=== PATIENT | male | born 1960 | race Caucasian/White ===

== ENCOUNTER 2021-04-15 11:02 | Day surgery (SDC) | payer BC, OTHER, SELFPAY ==
[2021-04-15] VITALS (9 sets, daily range): BP systolic 111–172; BP diastolic 64–91; PULSE 61–78; RESP 14–20; TEMP 36.2–36.6; O2SAT 94–99
--- NOTE | ~2021-04-15 | CT_ITS ---
EXAMINATION: CT abdomen pelvis w con DATE: 04/15/2021 13:44 INDICATION: Left flank pain. Hematuria. TECHNIQUE: Computed tomography (CT) of the abdomen and pelvis was performed with 100 mL Omnipaque 350 intravenous contrast. Automated exposure control and iterative reconstruction technique were employe d. The dose-length product was 796.48 mGy-cm. COMPARISON: CT abdomen and pelvis 05/07/2018, 04/18/2018 FINDINGS: The visualized portions of the lung bases demonstrate mild atelectasis. No pleural effusion . The heart size is normal. No pericardial effusion. There is a moderate-sized sliding hiatal hernia. There is a 9 mm cyst in the liver. There is a chronic 2.2 cm mass in right hepatic lobe with interru pted peripheral puddling of contrast, consistent with a hemangioma. There is a chronic 13 mm mass in right hepatic lobe at the hilum that was hyperenhancing on the prior CT, likely a hemangioma. The gal lbladder is normal. Calcifications in the spleen are consistent with old granulomatous disease. The p ancreas and adrenal glands are normal. There are cysts in right kidney measuring up to 4.6 cm. There are 3 mm and 4 mm stones in right kidney. There is mild proximal right hydroureter. There is a 3 mm s tone in proximal right ureter. There is a delayed and decreased left-sided contrast nephrogram. There is mild left hydronephrosis and hydroureter. There is a 5 mm stone in proximal left ureter. The pros nguyen is mildly enlarged. There are scattered diverticula in the colon. There is focal wall thickening of sigmoid colon. The appendix is normal. There are no pathologically enlarged lymph nodes. There is no free intraperitoneal fluid. There are bilateral inguinal hernias containing fat. There is mild jonny mbar spondylosis. IMPRESSION: 1. 3 mm stone in proximal right ureter with mild right hydroureter. 2. 5 mm stone in proximal left ureter with mild left hydronephrosis and hydroureter. 3. Bilateral nonobstructing kidney stones. 4. Focal wall thickening of sigmoid colon, which may be chronic diverticulitis or less likely maligna ncy. Colonoscopy is recommended. 5. Moderate-sized sliding hiatal hernia. Reviewed, dictated and finalized at location B. T HEMMER IMPRESSION: 1. 3 mm stone in proximal right ureter with mild right hydroureter. 2. 5 mm stone in proximal left ureter with mild left hydronephrosis and hydrour eter. 3. Bilateral nonobstructing kidney stones. 4. Focal wall thickening of sigmoid colon, which may be chronic diverticulitis or less likely malignancy. Colonoscopy is recommended. 5. Moderate-sized sliding hiatal hernia.
--- NOTE | ~2021-04-15 | XR_ITS ---
EXAMINATION: XR retrograde pyelo w/stent BI DATE: 04/15/2021 16:07 INDICATION: Bilateral internal ureteral stent placement TECHNIQUE: Fluoroscopic images from a bilateral internal ureteral stent placement are submitted for griffin bernardo. 17 seconds of fluoroscopy time. 157 fluoroscopic images. FINDINGS: There are bilateral double-J internal ureteral stent projecting in expected position, with proximal C ope loop at the level of the renal pelvis and distal loop in the pelvis within the bladder lumen. IMPRESSION: 1. Bilateral internal ureteral stent placement. Please refer to real-time procedural findings for d etails. Reviewed, dictated and finalized at location A. [facility]ER IMPRESSION: 1. Bilateral internal ureteral stent placement. Please refer to real-time pro cedural findings for details.
--- NOTE | 2021-04-15 12:31 | ED.ABDPAIN ---
HPI - Abdominal Pain General Chief Complaint: Abdominal Pain Stated Complaint: left sided flank pain Time Seen by Provider: 04/15/21 12:29 Source: patient, family and RN notes reviewed Mode of arrival: ambulatory Limitations: no limitations History of Present Illness HPI narrative: Patient presents with left lower abdomen left flank pain started yesterday associated with nausea and intermittent vomiting, history of kidney stone. Patient denies any fever, chills, diarrhea or constipation. Related Data Home Medications Medication Instructions Recorded Confirmed aspirin [Baby Aspirin] 81 mg PO DAILY 04/15/21 04/15/21 azelastine 1 spray INTRANASAL BID 04/15/21 04/15/21 clopidogrel 75 mg PO DAILY 04/15/21 04/15/21 coenzyme Q10 [CoQ-10] 100 mg PO DAILY 04/15/21 04/15/21 cranberry extract [cranberry] 250 mg PO DAILY 04/15/21 04/15/21 finasteride 5 mg PO DAILY 04/15/21 04/15/21 metoprolol succinate 25 mg PO DAILY 04/15/21 04/15/21 montelukast 10 mg PO DAILY 04/15/21 04/15/21 idiimvmc-odo-ND-lycopen-lutein 1 tablet PO DAILY 04/15/21 04/15/21 [Centrum Silver Men] rosuvastatin 40 mg PO DAILY 04/15/21 04/15/21 sildenafil 100 mg PO PRN PRN 04/15/21 04/15/21 Allergies Allergy/AdvReac Type Severity Reaction Status Date / Time No Known Allergies Allergy Unverified 05/07/18 09:55 Review of Systems Review of Systems: CONSTITUTIONAL: Denies fever, chills, or sweats. EYES: Denies visual changes, redness, or discharge. ENT: Denies rhinorrhea, congestion, sore throat, or otalgia. CARDIOVASCULAR: Denies chest pain, palpitations, or edema. RESPIRATORY: Denies cough or dyspnea. GASTROINTESTINAL: Denies abdominal pain, nausea, vomiting, or diarrhea. GENITOURINARY: Denies dysuria or hematuria. SKIN: Denies rash or itching. MUSCULOSKELETAL: Denies back pain, joint pain, or myalgia. NEUROLOGIC: Denies headache, numbness, or weakness. PSYCHIATRIC: Denies anxiety or depression. [facility] Past Medical History Medical History CAD (coronary artery disease) Hyperlipidemia Hypertension JAQUELINE (obstructive sleep apnea) Surgical History Surgical History Hx of CABG Exam Narrative: General appearance: Well-developed, well-nourished Skin: Normal color Head: Normocephalic, nontraumatic Eyes: Clear conjunctiva ENT: Oropharynx normal, ears normal, nose normal Neck: Supple, nontender Chest and respiratory: Airway patent, no respiratory distress, no accessory muscle use Heart: Regular rate/rhythm Abdomen: Soft, mild tenderness left lower quadrant and left flank, no organomegaly, quiet bowel sounds Vascular: Normal peripheral pulses, normal capillary refill. Musculoskeletal: Normal range of motion, nontender back Neurologic: Alert and oriented ?3, [employer] is normal as tested, no gross motor deficit Course Course Emergency Course: Stable Consultations Consultation #1: Dr. Pisano who accepted patient admission to the OR for kidney stone removal Date: 04/15/21 Time: 15:56 Vital Signs Vital signs: Vital Signs Temperature 36.3 C L 04/15/21 11:12 Pulse Rate 72 04/15/21 11:12 Respiratory Rate 14 04/15/21 11:12 Blood Pressure 137/75 04/15/21 11:12 Pulse Oximetry 99 04/15/21 11:12 Temperature 36.6 C 04/15/21 15:20 Pulse Rate 64 04/15/21 15:20 Respiratory Rate 20 04/15/21 15:20 Blood Pressure 172/91 H 04/15/21 15:20 Pulse Oximetry 98 04/15/21 15:20 MDM - Abdominal Pain MDM Narrative Medical decision making narrative: Kidney stone is my concern. Differential Diagnosis Differential diagnosis: Likely abdominal pain, calculus o
[2021-04-15 12:40] LABS: Basophils Percent Auto 0.2 % (0.2-1.2); Eosinophils Percent Auto 0.1 % (0-4.4); Hematocrit 46.3 % (42.0-52.0); Hemoglobin 15.5 g/dL (14.0-18.0); Immature Granulocyte Absolute 0.05 K/mm3 (0.00-0.031); Immature Granulocyte Percent A 0.4 % (0-0.5); Lymphocytes Absolute Auto 1.84 K/mm3 (0.9-3.2); Lymphocytes Percent Auto 14.7 % (18.3-44.2); Mean Corpuscular HGB Conc 33.5 g/dl (32-36); Mean Corpuscular Hemoglobin 31.1 pg (26-34); Mean Platelet Volume 10.2 fl (7.4-10.4); Monocytes Percent Auto 8.3 % (2.6-8.5); Neutrophils Absolute Auto 9.5 K/mm3 (1.3-6.7); Neutrophils Percent Auto 76.3 % (45.5-73.1); Platelet Count Result 153 k/mm3 (150-375); Red Blood Count 4.98 M/mm3 (4.6-6.20); Red Cell Distribution Width 13.5 % (11.5-14.5); White Blood Count 12.5 K/mm3 (4.5-10.0)
[2021-04-15] MEDS: SODIUM CHLORIDE 0.9% IV 1,000 ML 999 ML IV CONT (12:44)
[2021-04-15] MEDS: ONDANSETRON INJ 4 MG/2 ML VIAL IV PUSH (12:44)
[2021-04-15] MEDS: HYDROmorphone HCL INJ (*CRX) 1 MG/ML SYR 0.5 MG IV PUSH ×4 (12:44→16:31)
[2021-04-15 12:51] LABS: Alanine Aminotransferase 17 U/L (4-50); Albumin Level 4.6 g/dL (3.5-5.1); Alkaline Phosphatase 74 U/L (38-126); Anion Gap 5 mmol/L (8-16); Aspartate Amino Transferase 26 U/L (17-59); Bilirubin,Total 0.5 mg/dL (0.2-1.3); Blood Urea Nitrogen 15 mg/dL (9-20); Calcium 9.8 mg/dL (8.4-10.2); Carbon Dioxide 28 mmol/L (22-30); Chloride 104 mmol/L (98-107); Estimated CRCL calculation 74 ml/min; Estimated Glomerular Filt Rate > 60; Glucose 117 mg/dL (65-110); Lipase 62 U/L (23-300); Potassium 4.4 mmol/L (3.4-5.0); Sodium 137 mmol/L (137-145)
[2021-04-15] MEDS: TAMSULOSIN HCL 0.4 MG CAPSULE PO (13:34)
[2021-04-15 13:48] LABS: Add Urine Microscopic? YES; Appearance Urine Cloudy (Clear); Bilirubin Urine Negative (Negative); Blood Urine 3+ (Negative); Color Urine Yellow (Yellow); Glucose Urine UA Negative (Negative); Ketones Urine Negative (Negative); Leukocyte Esterase Ur Negative LEU/UL (Negative); Mucus Urine Rare /lpf; Nitrate Urine Negative (Negative); Protein Urine 1+ mg/dL (Negative); RBC Urine >75 /hpf (0-2); Specific Grav Ur 1.018 (1.001-1.035); Squamous Epithelial Cell Urine Rare /hpf (Few); Urobilinogen Urine Negative mg/dL (<2.0)
[2021-04-15] MEDS: LACTATED RINGERS 1,000 ML 30 ML IV CONT (15:15)
--- NOTE | 2021-04-15 15:19 | PM.IMHP ---
H&P: HPI History of Present Illness Date/Time: 04/15/21 15:19 This is a 60-year-old gentle with a long history of nephrolithiasis. He is usually managed by my partner Dr. Slaughter. He has had interventions for his stones before. He had acute onset of flank pain 2-3 days ago. His pain is mostly on the left. He states he has passed a stone yesterday. This pain intensified. He also noted visible blood in the urine. He had significant nausea and vomiting. He denied dysuria. He denied fevers. He denied symptoms of urinary tract infection. When presenting to the emergency room he underwent a CT scan. It shows bilateral ureteral stones. 3 mm on the right. 5 mm on the left. His creatinine is normal. He does have bilateral hydronephrosis. There is nonobstructing stones in both kidneys. Chief Complaint: Bilateral ureteral stones, hydronephrosis, bilateral nonobstructing renal stones Review of Systems Review of Systems: All systems reviewed & are unremarkable except as noted in HPI and below PMFSH Past Medical History Medical History (Updated 04/15/21 @ 15:24 by Sundar Pisano MD) CAD (coronary artery disease) Hyperlipidemia Hypertension JAQUELINE (obstructive sleep apnea) Surgical History Surgical History (Updated 04/15/21 @ 15:22 by Stan Champion MD) Hx of CABG Meds Home Medications and Allergies Allergies Allergy/AdvReac Type Severity Reaction Status Date / Time No Known Allergies Allergy Unverified 05/07/18 09:55 Vital Signs Vital Signs - 24 hr 04/15/21 11:12 04/15/21 14:55 Temperature 97.3 F L 98 F Pulse Rate 72 74 Respiratory Rate 14 16 Blood Pressure 137/75 171/84 H Pulse Oximetry 99 96 Exam Const: General: cooperative, healthy appearing and in distress (He is quite uncomfortable from his stones) Nutritional Appearance: average body habitus and well nourished Orientation/consciousness: patient oriented x3 Limitations: no limitations HENMT: Head: normal to inspection Face and sinus: normal facial exam Eyes: General: appearance normal, both eyes and all related structures Neck: Neck: normal visual inspection and full ROM Resp: Effort & Inspection: normal respiratory effort, able to speak in complete sentences and no cough GI: Inspection: normal to inspection GI Palp: Yes abdominal tenderness (In the flank and left lower quadrant do to stone ) and No Rigid due to palpation Back/Spine/Pelvis: Back: CVA tenderness (Left) Skin: General skin exam: normal color and no rashes or lesions noted Neuro: General: patient oriented x3 and tone normal Extrem: General: normal to inspection and full ROM Psych: Appearance: grossly normal and well kempt Mental Status: mental status grossly normal H&P: Results Labs Labs: Short CBC 04/15/21 Range/Units 12:33 WBC 12.5 H (4.5-10.0) K/mm3 Hgb 15.5 (14.0-18.0) g/dL Hct 46.3 (42.0-52.0) % Plt Count 153 (150-375) k/mm3 BMP 04/15/21 12:33 Sodium 137 Potassium 4.4 Chloride 104 Carbon Dioxide 28 BUN 15 Creatinine 1.00 Glucose 117 H Calcium 9.8 Liver Function 04/15/21 Range/Units 12:33 Total Bilirubin 0.5 (0.2-1.3) mg/dL AST 26 (17-59) U/L ALT 17 (4-50) U/L Alkaline Phosphatase 74 (38-126) U/L Albumin 4.6 (3.5-5.1) g/dL Urine 04/15/21 Range/Units 13:17 Urine Color Yellow (Yellow) Urine Appearance Cloudy H (Clear) Urine pH 7.0 (5.0-9.0) Ur Specific [place] 1.018 (1.001-1.035) Urine Protein 1+ H (Negative) mg/dL Urine Glucose (UA) Negative (Negative) mg/dL Assessment and Plan Assessment and plan (1) Bilateral ureteral calculi: Code(s): N20.1 - Calculus of ureter Status: Acute Assessment and Plan: He is quite uncomfortable. Particularly on the left. Fortunately his creatinine is normal. Unfortunately he has bilateral hydronephrosis. All taken to the operating room urgently this afternoon for placement of bilateral
--- NOTE | 2021-04-15 15:21 | WPDANESEPPF ---
Anes - Initial Pre Proc Eval Procedure: Operation Date: 04/15/21 15:30 Proposed Procedures p Cystoscopy,Bilateral Stent Placement - Sundar Pisano MD Date/Time: 04/15/21 15:21 Surgeon: Sundar Pisano MD Pre Op Diagnosis: left sided flank pain Patient Data Age: 60 Gender: M Height: 1.68 m Weight: 95 kg Last Vital Signs Temp 36.6 C 04/15/21 14:55 Pulse 74 04/15/21 14:55 Resp 16 04/15/21 14:55 BP 171/84 H 04/15/21 14:55 Pulse Ox 96 04/15/21 14:55 Allergies Allergy/AdvReac Type Severity Reaction Status Date / Time No Known Allergies Allergy Unverified 05/07/18 09:55 Laboratory Tests 04/15/21 04/15/21 04/15/21 12:33 12:33 13:17 WBC 12.5 K/mm3 H K/mm3 (4.5-10.0) RBC 4.98 M/mm3 M/mm3 (4.6-6.20) Hgb 15.5 g/dL g/dL (14.0-18.0) Hct 46.3 % % (42.0-52.0) MCV 93.0 fl fl (80-100) MCH 31.1 pg pg (26-34) MCHC 33.5 g/dl g/dl (32-36) RDW 13.5 % % (11.5-14.5) Plt Count 153 k/mm3 k/mm3 (150-375) MPV 10.2 fl fl (7.4-10.4) Immature Gran % (Auto) 0.4 % % (0-0.5) Neut % (Auto) 76.3 % H % (45.5-73.1) Lymph % (Auto) 14.7 % L % (18.3-44.2) [place] % (Auto) 8.3 % % (2.6-8.5) Eos % (Auto) 0.1 % % (0-4.4) Baso % (Auto) 0.2 % % (0.2-1.2) Lymph # (Auto) 1.84 K/mm3 K/mm3 (0.9-3.2) [place] # (Auto) 1.0 K/mm3 H K/mm3 (0.1-0.6) Eos # (Auto) 0.0 K/mm3 K/mm3 (0-0.3) Baso # (Auto) 0.0 K/mm3 K/mm3 (0.0-0.1) Abs Immat Gran (auto) 0.05 K/mm3 H K/mm3 (0.00-0.031) Absolute Neuts (auto) 9.5 K/mm3 H K/mm3 (1.3-6.7) Absolute Nucleated RBC 0.0 K/mm3 K/mm3 (0.0-0.012) Nucleated RBC % 0.0 % % (0.0-0.2) Sodium 137 mmol/L mmol/L (137-145) Potassium 4.4 mmol/L mmol/L (3.4-5.0) Chloride 104 mmol/L mmol/L (98-107) Carbon Dioxide 28 mmol/L mmol/L (22-30) Anion Gap 5 mmol/L L mmol/L (8-16) BUN 15 mg/dL mg/dL (9-20) Creatinine 1.00 mg/dL mg/dL (0.7-1.3) Estim Creat Clear Calc 74 ml/min ml/min Estimated GFR > 60 (59 - ) Glucose 117 mg/dL H mg/dL (65-110) Calcium 9.8 mg/dL mg/dL (8.4-10.2) Total Bilirubin 0.5 mg/dL mg/dL (0.2-1.3) AST 26 U/L U/L (17-59) ALT 17 U/L U/L (4-50) Alkaline Phosphatase 74 U/L U/L (38-126) Total Protein 7.0 g/dL g/dL (6.3-8.2) Albumin 4.6 g/dL g/dL (3.5-5.1) Lipase 62 U/L U/L (23-300) Urine Color Yellow (Yellow) Urine Appearance Cloudy H (Clear) Urine pH 7.0 (5.0-9.0) Ur Specific [place] 1.018 (1.001-1.035) Urine Protein 1+ mg/dL H mg/dL (Negative) Urine Glucose (UA) Negative mg/dL mg/dL (Negative) Urine Ketones Negative mg/dL mg/dL (Negative) Ur Blood (Man) 3+ H (Negative) Urine Nitrate Negative (Negative) Urine Bilirubin Negative (Negative) Urine Urobilinogen Negative mg/dL mg/dL (<2.0) Leukocyte Esterase Rfl Negative BLU/UL BLU/UL (Negative) Urine RBC >75 /hpf H /hpf (0-2) Urine WBC 4-6 /hpf H /hpf Ur Squamous Epith Cells Rare /hpf /hpf (Few) Urine Mucus Rare /lpf /lpf Patient hx anesthesia problems: none Family hx anesthesia problems: none Results Review: All pre-operative results and documents have been reviewed as part of the pre-operative evaluation. [facility] Past Medical History Medical History CAD (coronary artery disease) Hyperlipidemia Hypertension JAQUELINE (obstructive sleep apnea) Surgical History Surgical History (Reviewed 04/15/21 @ 15:22 by Stan Farr
--- NOTE | 2021-04-15 15:25 | WPDHPUPDATE1 ---
History and Physical Update Update Date/Time: 04/15/21 15:25 History and Physical has been reviewed, including an updated exam of the patient. There are NO changes in the patient's condition. Risks, benefits, and alternatives have been discussed and questions answered. Patient agrees to proceed with procedure.
[2021-04-15] MEDS: LIDOCAINE HCL 2% GEL UROJET 10 ML PKG MUCOUS MEM (15:53)
[2021-04-15] MEDS: ceFAZolin SODIUM 1 GM VIAL 2 GM IV PUSH (15:54)
--- NOTE | 2021-04-15 16:04 | W.PM.PROC2 ---
Procedure Note - Detailed Date of Procedure 04/15/21 Pre-op Diagnosis Bilateral ureteral stones Post-op Diagnosis same Procedure Performed Cystoscopy, bilateral retrograde pyelograms, bilateral ureteral stents Surgeon Sundar Pisano MD Anesthesia general Indications This is a gentleman who is passing stones in both ureters. He is in quite a bit him pain. He presents today for bilateral stents. Definitive stone management to follow Findings Bilateral hydronephrosis. Bilateral stents placed Description of Procedure He has correctly identified. Informed consent obtained. He is brought to the operating room. He was given general anesthesia. He was prepped draped sterile fashion. Time-out performed. He was given appropriate perioperative antibiotics. I examined the bladder via cystoscopy. He had enlarged prostate and a hypervascular bladder neck. There was no other bladder abnormalities. There is mild trabeculations. I did a gentle retrograde pyelogram on the left he had hydronephrosis of the renal pelvis and ureter. There was no filling defects. A guidewire was placed into the renal pelvis. I placed a 4.8 variable length stent. Proximal coil in the kidney. Distal coil in the bladder. I then repeated this on the contralateral side. I did a retrograde pyelogram on the right. He had hydronephrosis. There is no filling defect. Placed a guidewire into the kidney. I then placed another 4.8 variable length stent. Proximal coil in the renal pelvis. Distal coil the bladder. The bladder was drained. He was awakened and transferred to PACU in stable condition. Implants Bilateral ureteral stents Estimated Blood Loss 1 Drains Yes (Bilateral ureteral stents) Pathology none sent Complications No immediate complications Condition stable Disposition PACU
[2021-04-15 16:13] LABS: Glucose Point of Care 116 mg/dl (65-105)
== END 2021-04-15 17:30 | disposition home or self-care (01) ==
LOC: ANHED 14:58 → ANHSURGERY 15:00
PROVIDERS: Emergency Medicine; Emergency Provider Emergency Medicine; PCP Family Medicine Adolescent Medicine; Visit Provider Urology
PROC: (CPT 52352; principal; 2021-04-15 15:30)
DX: N13.2 Hydronephrosis with renal and ureteral calculous obstruction (principal); I25.10 Atherosclerotic heart disease of native coronary artery without angina pectoris; I10 Essential (primary) hypertension; E78.5 Hyperlipidemia, unspecified; G47.33 Obstructive sleep apnea (adult) (pediatric); Z95.1 Presence of aortocoronary bypass graft; E66.9 Obesity, unspecified; Z68.33 Body mass index [BMI] 33.0-33.9, adult; Z79.82 Long term (current) use of aspirin; Z79.02 Long term (current) use of antithrombotics/antiplatelets
CPT/HCPCS: 52332; 36415; 74177; 74420; 80053; 81001; 82948; 83690; 85025; A9270; C1758; C1769; C2617; J0690; J1170; J2250; J2405; J2704; J3010; J7030; J7120; Q9966; Q9967

== ENCOUNTER 2021-05-10 03:02 | Day surgery (SDC) | payer BC, OTHER, SELFPAY ==
[2021-05-03 10:01] VITALS: BMI 32.3
--- NOTE | 2021-05-03 10:20 | PC.NURSE ---
Report to the Outpatient Waiting Room, entrance under the green pavilion located off [facility], at time 0630 on date 05/10/21. OR Time: 0830. - You and your visitor will be asked a series of questions to screen for COVID 19 for your protection. - A mask is required within the hospital. - Only one visitor is allowed at this time. Patient visitors will be guided where to wait when not with patient. Preoperative COVID Testing Requirements: No COVID Test needed if: (proof is required; if not received patient will have Rapid Test prior to entry) - Patient has received COVID Vaccine at least 14 days prior to procedure date or - Patient has positive COVID test result within last 90 days of surgery date. COVID Test needed if above criteria is not met If not COVID vaccinated a COVID test must be conducted within 72 hours of surgery and patient is asked to isolate self from time of testing until procedure. You will go to the [facility] for your COVID testing. The [facility] site is located at the corner of [address] [facility]. You will only be called if COVID results are positive and your surgeon may reschedule your elective surgery date. Patients may have clear liquids (water, carbonated beverages, clear teas, apple juice) until 3 hours prior to surgery with a maximum of 20 ounces. - No food from midnight until time of surgery - Infants may have breast milk until 4 hours before surgery, formula 6 hours prior to surgery. - Children will be allowed to drink immediately following surgery. If applicable, please bring a bottle or sippy cup to assist with drinking. Juice, water, soda, and popsicles are readily available. For infants on formula, please bring formula the day of surgery. Pacifiers are allowed. Take the following medications with a SIP of water the morning of surgery: METOPROLOL, PAIN PILL (IF NEEDED) Medications to discontinue per physician: VITAMINS/SUPPLEMENTS Date to take last dose: 05/06/21 STOP PLAVIX AND ASPIRIN 7 DAYS PRIOR TO SURGERY (PER DR. GRAHAM) Please no make-up, nail bulgarian, hairspray, perfume, deodorant, or body powder the day of surgery. No jewelry (including any body piercings) or valuables the day of surgery, leave them at home. Please take a shower or bath the night before, or the morning of, surgery with an antibacterial soap. Wear comfortable, loose fitting clothing. Children are encouraged to wear pajamas. - Jewelry must be removed prior to entering the operating room. Rings and piercings that are not removed may be cut off. - The hospital will not accept responsibility for valuables. - Please leave all valuables, including medications, at home the day of surgery. If you are going home after surgery, a licensed pharmacy delivery driver must drive you home. - NO public transportation without another adult. - We recommend that an adult stay with you for 24 hours following discharge. - We also recommend that you do not drive, make important decision, drink alcoholic beverages, or take any drugs that were not prescribed by your health care provider for at least 24 hours after your discharge time. For Pediatric surgeries, we recommend two adults accompany the child home (only one inside the building at this time). Follow any additional instructions given to you from your surgeon. Telephone instructions given to JAYANT CAGE and asked if any additional questions and then verbalized understanding. Patient advised to call surgeon office or pre surgery nurse liaison [phone] if any additional questions.
--- NOTE | 2021-05-06 13:12 | PM.HPGS ---
History of Present Illness History of Present Illness Consent: Risks, benefits, and alternatives have been discussed and questions answered. Patient agrees to proceed with procedure. Chief complaint: Jeovanny Kidney Stones Narrative: Oniel Cardenas is a 61 year old male recently seen by Dr. Sundar murillo when he presented with bilateral obstructing ureteral calculi. Approximately 2 and half weeks ago he underwent cystoscopy with bilateral ureteral stent placement for this 3 mm right ureteral and 5 mm left ureteral stone. He now presents for definitive intervention for these ureteral calculi. He has a history of prostatism controlled with medication. Review of Systems Cardiovascular: Cardiovascular: Denies chest pain, Denies lightheadedness, Denies palpitations and Denies dyspnea Respiratory: Respiratory: Denies dyspnea Gastrointestinal: Gastrointestinal: Denies diarrhea, Denies nausea and Denies vomiting Genitourinary: Genitourinary: Denies hematuria and Denies dysuria Endocrine: Endocrine: Denies palpitations PMFSH Past Medical History Medical History CAD (coronary artery disease) Hyperlipidemia Hypertension JAQUELINE (obstructive sleep apnea) Surgical History Surgical History Hx of CABG Social History Social History Smoking packs per day: 1 Smoking cigarettes per day: 20.0 Years smoked: 45 Smoking pack-years: 45.00 Smoking status: Current every day smoker Tobacco type: cigarettes Alcohol intake: never Substance use: never Substance use type: does not use Living arrangements: with family Spiritual care concerns: No Meds Home Medications and Allergies Home Medications Medication Instructions Recorded Confirmed Type Centrum Silver Men 1 tablet PO DAILY 04/15/21 05/03/21 History aspirin 81 mg PO DAILY 04/15/21 05/03/21 History azelastine 1 spray INTRANASAL BID 04/15/21 05/03/21 History clopidogrel 75 mg PO DAILY 04/15/21 05/03/21 History coenzyme Q10 [CoQ-10] 100 mg PO DAILY 04/15/21 05/03/21 History cranberry extract 250 mg PO DAILY 04/15/21 05/03/21 History finasteride 5 mg PO DAILY 04/15/21 05/03/21 History hydrocodone-acetaminophen 1 tablet PO Q6H PRN #30 tablet 04/15/21 05/03/21 Rx metoprolol succinate 25 mg PO DAILY 04/15/21 05/03/21 History montelukast 10 mg PO DAILY 04/15/21 05/03/21 History rosuvastatin 40 mg PO DAILY 04/15/21 05/03/21 History sildenafil 100 mg PO PRN PRN 04/15/21 05/03/21 History azelastine 2 spray INTRANASAL BID 05/03/21 05/03/21 History cetirizine 10 mg PO DAILY 05/03/21 05/03/21 History docusate sodium [Dulcolax Stool 100 mg PO DAILY 05/03/21 05/03/21 History Softener (dss)] fluticasone propionate 1 spray INTRANASAL BID 05/03/21 05/03/21 History phenazopyridine [Pyridium] 200 mg PO BID PRN 05/03/21 05/03/21 History Allergies Allergy/AdvReac Type Severity Reaction Status Date / Time No Known Allergies Allergy Unverified 05/03/21 09:55 Exam Const: General: no acute distress Resp: Effort & Inspection: normal respiratory effort GI: Inspection: non-distended GI Palp: No abdominal tenderness and No Guarding due to palpation present (GI) Auscultation: normal bowel sounds Assessment and Plan Assessment and plan (1) Bilateral ureteral calculi: Code(s): N20.1 - Calculus of ureter Status: Acute Assessment and Plan: Cystoscopy, bilateral ureteroscopy with stone extraction, possible bilateral laser lithotripsy and bilateral ureteral stent replacement
[2021-05-10] VITALS (8 sets, daily range): BP systolic 118–142; BP diastolic 69–87; PULSE 56–71; RESP 14–16; TEMP 36.1–36.4; O2SAT 95–100
--- NOTE | ~2021-05-10 | XR_ITS ---
EXAMINATION: XR retrograde pyelo w/stent BI DATE: 05/10/2021 15:18 INDICATION: Bilateral kidney stones. TECHNIQUE: 68 intraoperative fluoroscopic views of the abdomen and pelvis were obtained. I was not pr esent. Fluoroscopy exposure time was 104 seconds. COMPARISON: CT abdomen and pelvis 04/15/2021 FINDINGS: The right-sided retrograde pyelogram demonstrates moderate hydronephrosis. Additional image s demonstrate a right internal ureteral stent in expected position. The final images demonstrate a le ft internal ureteral stent in expected position. IMPRESSION: 1. Moderate right hydronephrosis. 2. Bilateral internal ureteral stents in expected positions. Reviewed, dictated and finalized at location A. PREVENTION INVESTIGATOR
--- NOTE | ~2021-05-10 | XR_ITS ---
EXAMINATION: XR abdomen/kub 1V DATE: 05/10/2021 13:32 INDICATION: Kidney stone. TECHNIQUE: A supine view of the abdomen on 2 radiographs was obtained. COMPARISON: CT abdomen and pelvis 04/15/2021 FINDINGS: There are no dilated loops of bowel. There are bilateral internal ureteral stents in expect ed positions. There are phleboliths in the pelvis. There is a 4 mm calcification overlying right sacr al ala. There is a benign bone island in left 12th rib. IMPRESSION: 1. Bilateral internal ureteral stents in expected positions. 2. 4 mm calcification overlying right sacral ala that may be a stone in the right ureter. Reviewed, dictated and finalized at location A. GE WORKER APPRENTICE IMPRESSION: 1. Bilateral internal ureteral stents in expected positions. 2. 4 mm calcification overlying right sacral ala that may be a stone in the rig ht ureter.
--- NOTE | 2021-05-10 06:46 | WPDHPUPDATE1 ---
History and Physical Update Update Date/Time: 05/10/21 06:46 History and Physical has been reviewed, including an updated exam of the patient. There are NO changes in the patient's condition. Risks, benefits, and alternatives have been discussed and questions answered. Patient agrees to proceed with procedure.
--- NOTE | 2021-05-10 13:31 | SUR.PREOP ---
1328 to xrgeorge for kub
--- NOTE | 2021-05-10 13:44 | WPDANESEPPF ---
Anes - Initial Pre Proc Eval Procedure: Operation Date: 05/10/21 16:00 Proposed Procedures p Bilateral Ureteroscopy, Bilateral Stone Extraction, Possible Bilateral Stent Replacement, Possible Stent Removal - Bharat Slaughter MD s Laser Lithotripsy - Bharat Slaughter MD Date/Time: 05/10/21 13:44 Surgeon: Bharat Slaughter MD Pre Op Diagnosis: Jeovanny Kidney Stones Patient Data Age: 61 Gender: M Height: 1.68 m Weight: 92.8 kg Last Vital Signs Temp 36.4 C 05/10/21 13:22 Pulse 71 05/10/21 13:22 Resp 16 05/10/21 13:22 BP 123/69 05/10/21 13:22 Pulse Ox 97 05/10/21 13:22 Allergies Allergy/AdvReac Type Severity Reaction Status Date / Time No Known Allergies Allergy Unverified 05/10/21 13:43 Home Medications Medication Instructions Recorded Confirmed Type Centrum Silver Men 1 tablet PO DAILY 04/15/21 05/03/21 History aspirin 81 mg PO DAILY 04/15/21 05/03/21 History azelastine 1 spray INTRANASAL BID 04/15/21 05/03/21 History clopidogrel 75 mg PO DAILY 04/15/21 05/03/21 History coenzyme Q10 [CoQ-10] 100 mg PO DAILY 04/15/21 05/03/21 History cranberry extract 250 mg PO DAILY 04/15/21 05/03/21 History finasteride 5 mg PO DAILY 04/15/21 05/03/21 History hydrocodone-acetaminophen 1 tablet PO Q6H PRN #30 tablet 04/15/21 05/03/21 Rx metoprolol succinate 25 mg PO DAILY 04/15/21 05/03/21 History montelukast 10 mg PO DAILY 04/15/21 05/03/21 History rosuvastatin 40 mg PO DAILY 04/15/21 05/03/21 History sildenafil 100 mg PO PRN PRN 04/15/21 05/03/21 History azelastine 2 spray INTRANASAL BID 05/03/21 05/03/21 History cetirizine 10 mg PO DAILY 05/03/21 05/03/21 History docusate sodium [Dulcolax Stool 100 mg PO DAILY 05/03/21 05/03/21 History Softener (dss)] fluticasone propionate 1 spray INTRANASAL BID 05/03/21 05/03/21 History phenazopyridine [Pyridium] 200 mg PO BID PRN 05/03/21 05/03/21 History Patient hx anesthesia problems: none Family hx anesthesia problems: none Results Review: All pre-operative results and documents have been reviewed as part of the pre-operative evaluation. [facility] Past Medical History Medical History CAD (coronary artery disease) Hiatal hernia History of heart attack x4 Hyperlipidemia Hypertension JAQUELINE (obstructive sleep apnea) CPAP Surgical History Surgical History History of coronary artery stent placement Hx of CABG x3, 2012 Social History Social History Smoking packs per day: 1 Smoking cigarettes per day: 20.0 Years smoked: 45 Smoking pack-years: 45.00 Smoking status: Current every day smoker Tobacco type: cigarettes Alcohol intake: never Substance use: never Substance use type: does not use Living arrangements: with family Spiritual care concerns: No Anes - Eval Final PreProcedure Day of Procedure 05/10/21 13:44 Patient weight: obese Heart: regular rate and rhythm Lungs: clear to auscultation Airway: Mallampati scale class II Neurological: alert and oriented Last oral intake: >/= 8 hours ASA classification: III Emergent: no Anesthetic plan: proceed Anesthesia type and monitoring: general LMA and standard monitoring Results Review: All pre-operative results and documents have been reviewed as part of the pre-operative evaluation. Informed Consent: The patient's anesthetic plan and its attendant risks and benefits were discussed with the patient/family/POA. Questions were solicited and answers provided to the satisfaction of the patient/family/POA.
[2021-05-10] MEDS: LACTATED RINGERS 1,000 ML 30 ML IV CONT (14:09)
[2021-05-10] MEDS: ceFAZolin 2 GM/D5W 50 ML 2 GM/50 ML BAG IVPB (14:17)
[2021-05-10] MEDS: fentaNYL CITRATE INJ (*CRX) 100 MCG/2 ML VIAL 25 MCG IV PUSH ×4 (14:53→16:01)
--- NOTE | 2021-05-10 15:17 | P.OP_ITS ---
Procedure Note - Detailed Date of Procedure 05/10/21 Pre-op Diagnosis Jeovanny Ureteral Stones Post-op Diagnosis same Procedure Performed cystoscopy, right ureteral stent removal, right ureteroscopy with stone extraction, retrograde pyelogram and stent replacement. Left stent ureteral stent removal with left ureteroscopy, laser lithotripsy stone extraction and stent placement. Surgeon Bharat Slaughter MD Anesthesia general Description of Procedure Patient is brought to the suite was prepped draped in routine sterile fashion while in dorsal lithotomy position after the uneventful induction of a general endotracheal anesthetic. Cystoscopy was undertaken with a 19 F rigid cystoscope. The tip of the right ureteral stent is grasped. It is slightly encrusted but is generally removed with ease. Distal right ureter was dilated with an 8 F 10 F dilator. Ureteroscopy was undertaken with a semi-rigid uret eral scope. There are some fragments of the encrusted ureteral stent which were extracted with a disposable basket. A 3 mm stone was identified in the mid ureter and likewise extracted with the basket. I performed a retrograde pyelogram showed sure that there were no additional a proximal ureteral calcifications. The right ureteral stent was placed ( 4.8 F variable length) with the proximal coil in renal pelvis and distal coil in the bladder. Left ureteral stent was removed in a similar fashion. Left ureteroscopy was undertaken both with a semi-rigid ureteral scope and a flexible ureteral scope. Again some small fragments of incrusted stations from the ureteral stent removed. The 5 mm left mid ureteral stone is fractured with a 273 micron holmium laser fiber and all fragments were extracted. The 4.8 F variable length ureteral stent was replaced on the left. Bladder was emptied the patient was taken recovery room good condition. Drains Yes Packing No Pathology yes Complications No immediate complications Condition stable Disposition PACU
[2021-05-10] MEDS: KETOROLAC 30 MG/ML VIAL (*BKC) IV PUSH (16:15)
[2021-05-10] MEDS: HYDROmorphone HCL INJ (*CRX) 1 MG/ML SYR 0.5 MG IV PUSH (16:16)
== END 2021-05-10 17:09 | disposition home or self-care (01) ==
PROVIDERS: PCP Physician Assistant; Visit Provider Urology
PROC: (CPT 52352; principal; 2021-05-10 16:00)
PROC: (CPT 52332; 2021-05-10 16:00)
DX: N20.1 Calculus of ureter (principal); I25.10 Atherosclerotic heart disease of native coronary artery without angina pectoris; I10 Essential (primary) hypertension; E78.5 Hyperlipidemia, unspecified; G47.33 Obstructive sleep apnea (adult) (pediatric); I25.2 Old myocardial infarction; Z95.5 Presence of coronary angioplasty implant and graft; Z95.1 Presence of aortocoronary bypass graft; F17.210 Nicotine dependence, cigarettes, uncomplicated; E66.9 Obesity, unspecified; Z68.33 Body mass index [BMI] 33.0-33.9, adult; Z79.02 Long term (current) use of antithrombotics/antiplatelets; Z79.82 Long term (current) use of aspirin
CPT/HCPCS: 52332; 52352; 52356; 74018; 74420; 82365; 88300; A9270; C1769; C2617; J0690; J1170; J1885; J2250; J2405; J2704; J3010; J7120; Q9966

== ENCOUNTER 2021-05-15 15:04 | Emergency (ER) | payer BC, OTHER, SELFPAY ==
--- NOTE | ~2021-05-15 | CT_ITS ---
EXAMINATION: CT abdomen pelvis wo con DATE: 05/15/2021 17:00 INDICATION: Left flank pain. History of kidney stones. TECHNIQUE: Computed tomography (CT) of the abdomen and pelvis was performed without intravenous contr ast. Automated exposure control and iterative reconstruction technique were employed. Exam dose: 337 .13 mGy-cm total exam DLP. COMPARISON: 04/15/2021 CT abdomen pelvis with IV contrast material FINDINGS: Calcified right lower lobe pulmonary granuloma and calcified subcarinal lymph nodes consist ent with old granulomatous disease. The included lower lung zones are clear. Normal heart size. No pe ricardial or pleural effusion. Small sliding hiatal hernia. Recently documented hemangioma of the posterior aspect of the upper right hepatic lobe is demonstrate d to better advantage on 04/15/2021 with the use of iodinated contrast material. Stable subcentimeter right hepatic cyst. The gallbladder is present. No gallbladder wall thickening o r pericholecystic fluid or fat stranding. Normal splenic size. No pancreatic mass lesion, calcificati on or ductal dilatation. No bile duct dilatation. Normal morphology of the adrenal glands. 1.5 cm probable proteinaceous are hemorrhagic exophytic cyst at the lower pole of the left kidney. Ap proximately 4.4 cm and 1.8 cm upper pole right renal cysts. Small mid right renal cyst. There are couple of pinpoint nonobstructing lower pole left renal calculi. There are bilateral internal urinary stents in expected position. There is a Ortiz catheter in the evacuated urinary bladder. The bladder is not optimally evaluated as result. Prostate enlargement and calcification. Normal caliber and mild atherosclerotic calcification of the abdominal aorta and iliac and femoral ar teries. No intraperitoneal or retroperitoneal or pelvic mass lesion or adenopathy or ascites. Normal appendix. Diverticulosis of the left colon; no CT evidence of diverticulitis. Bilateral small fat-containing inguinal hernias. No suspicious osteolytic or osteoblastic lesions. IMPRESSION: Interval placement of bilateral internal urinary stent; no apparent ureteral calculus Bilateral renal cysts Pinpoint nonobstructing lower pole left renal calculi Hepatic hemangioma and cyst Small sliding hiatal hernia Diverticulosis of the colon; no CT evidence of diverticulitis Moderate prostate enlargement and calcification Ortiz catheter in urinary bladder with bladder evacuation; bladder is not optimally evaluated Reviewed, dictated and finalized at [facility]. Reviewed, dictated and finalized at location [facility]. ECTORS AND REGULATORY OFFICERS IMPRESSION: Interval placement of bilateral internal urinary stent; no apparen t ureteral calculus Bilateral renal cysts Pinpoint nonobstructing lower pole left renal calculi Hepatic hemangioma and cyst Small sliding hiatal hernia Diverticulosis of the colon; no CT evidence of diverticulitis Moderate prostate enlargement and calcification Ortiz catheter in urinary bladder with bladder evacuation; bladder is not optim ally evaluated
[2021-05-15 15:10] VITALS: BP 134/73; PULSE 81; RESP 20; TEMP 36.6; O2SAT 96
--- NOTE | 2021-05-15 15:45 | ED.GENADULT ---
HPI - General Adult General Chief complaint: Urogenital-Male <Brandy Luz PA-C - Last Filed: 05/15/21 20:06> Stated complaint: L flank pain <Brandy Luz PA-C - Last Filed: 05/15/21 20:06> Time Seen by Provider: 05/15/21 15:31 <Brandy Luz PA-C - Last Filed: 05/15/21 20:06> Source: patient and family () <Brandy Luz PA-C - Last Filed: 05/15/21 20:06> Mode of arrival: EMS <Brandy Luz PA-C - Last Filed: 05/15/21 20:06> Limitations: no limitations <Brandy Luz PA-C - Last Filed: 05/15/21 20:06> History of Present Illness HPI narrative: Patient is here for urinary retention and pain. He had a urinary stents removed, a lithotripsy and stents replaced bilaterally on 05/10. He has completed 5 days of antibiotics. He has been in pain since that time and this morning had just a dribble of urine and then has worsening pain. He denies fever. He has had an ongoing problem with kidney stones for the past 4 weeks. <Brandy Luz PA-C - Last Filed: 05/15/21 20:06> Onset (ago): hour(s) <Brandy Luz PA-C - Last Filed: 05/15/21 20:06> Severity scale (1-10): >10 <Brandy Luz PA-C - Last Filed: 05/15/21 20:06> Quality: stabbing and sharp <JAYDEN Berg Last Filed: 05/15/21 20:06> Pain Consistency: constant <Brandy Luz PA-C - Last Filed: 05/15/21 20:06> Relieving factors: none <Brandy Luz PA-C - Last Filed: 05/15/21 20:06> Associated symptoms: denies other symptoms <Brandy Luz PA-C - Last Filed: 05/15/21 20:06> Treatments prior to arrival: other (Starr prescribed at procedure.) <Brandy Luz PA-C - Last Filed: 05/15/21 20:06> Related Data Home medications: Home Medications Medication Instructions Recorded Confirmed Centrum Silver Men 1 tablet PO DAILY 04/15/21 05/10/21 aspirin 81 mg PO DAILY 04/15/21 05/10/21 azelastine 1 spray INTRANASAL BID 04/15/21 05/10/21 clopidogrel 75 mg PO DAILY 04/15/21 05/10/21 coenzyme Q10 [CoQ-10] 100 mg PO DAILY 04/15/21 05/10/21 cranberry extract 250 mg PO DAILY 04/15/21 05/10/21 finasteride 5 mg PO DAILY 04/15/21 05/10/21 metoprolol succinate 25 mg PO DAILY 04/15/21 05/10/21 montelukast 10 mg PO DAILY 04/15/21 05/10/21 rosuvastatin 40 mg PO DAILY 04/15/21 05/10/21 sildenafil 100 mg PO PRN PRN 04/15/21 05/10/21 azelastine 2 spray INTRANASAL BID 05/03/21 05/10/21 cetirizine 10 mg PO DAILY 05/03/21 05/10/21 docusate sodium [Dulcolax Stool 100 mg PO DAILY 05/03/21 05/10/21 Softener (dss)] fluticasone propionate 1 spray INTRANASAL BID 05/03/21 05/10/21 phenazopyridine [Pyridium] 200 mg PO BID PRN 05/03/21 05/10/21 <Brandy Luz PA-C - Last Filed: 05/15/21 20:06> Allergies/adverse reactions: Allergies Allergy/AdvReac Type Severity Reaction Status Date / Time No Known Allergies Allergy Unverified 05/10/21 13:43 <Brandy Luz PA-C - Last Filed: 05/15/21 20:06> Review of Systems Review of Systems: All systems reviewed & are unremarkable except as noted in HPI and below <Brandy Luz PA-C - Last Filed: 05/15/21 20:06> [facility] Past Medical History Medical History: Medical History CAD (coronary artery disease) Hiatal hernia History of heart attack x4 Hyperlipidemia Hypertension JAQUELINE (obstructive sleep apnea) CPAP <Brandy Luz PA-C - Last Filed: 05/15/21 20:06> Surgical History Surgical History: Surgical History History of coronary artery stent placement Hx of CABG x3, 2012 <Brandy Luz PA-C - Last Filed: 05/15/21 20:06> Social History Social History: Social History Smoking packs per day: 1 Smoking cigarettes per day: 20.0 Years smoked: 45 Smoking pack-years: 45.00 Smoking status: Current every day smoker
[2021-05-15] MEDS: LIDOCAINE HCL 2% GEL UROJET 10 ML PKG (15:52)
[2021-05-15 16:31] LABS: Add Urine Microscopic? YES; Bilirubin Urine Negative (Negative); Blood Urine 3+ (Negative); Color Urine Amber (Yellow); Glucose Urine UA 1+ mg/dL (Negative); Ketones Urine Trace mg/dL (Negative); Leukocyte Esterase Ur Negative LEU/UL (Negative); Nitrate Urine Positive (Negative); Protein Urine 3+ mg/dL (Negative); Specific Grav Ur 1.013 (1.001-1.035)
[2021-05-15 16:32] LABS: Appearance Urine Turbid (Clear)
[2021-05-15 16:33] LABS: RBC Urine >75 /hpf (0-2); Squamous Epithelial Cell Urine Few /hpf (Few)
[2021-05-15 16:34] LABS: Bacteria Urine Trace /hpf
[2021-05-15] MEDS: ONDANSETRON INJ 4 MG/2 ML VIAL IV PUSH (16:35)
[2021-05-15] MEDS: MORPHINE SULFATE (*CRX) 2 MG/ML INJ IV PUSH (16:36)
[2021-05-15 16:51] LABS: Basophils Absolute Auto 0.1 K/mm3 (0.0-0.1); Basophils Percent Auto 0.6 % (0.2-1.2); Eosinophils Absolute Auto 0.1 K/mm3 (0-0.3); Eosinophils Percent Auto 0.4 % (0-4.4); Hematocrit 40.3 % (42.0-52.0); Hemoglobin 13.2 g/dL (14.0-18.0); Immature Granulocyte Absolute 0.05 K/mm3 (0.00-0.031); Immature Granulocyte Percent A 0.4 % (0-0.5); Lymphocytes Absolute Auto 1.23 K/mm3 (0.9-3.2); Lymphocytes Percent Auto 10.6 % (18.3-44.2); Mean Corpuscular HGB Conc 32.8 g/dl (32-36); Mean Corpuscular Hemoglobin 31.1 pg (26-34); Mean Platelet Volume 10.2 fl (7.4-10.4); Monocytes Absolute Auto 0.7 K/mm3 (0.1-0.6); Monocytes Percent Auto 6.2 % (2.6-8.5); Neutrophils Absolute Auto 9.5 K/mm3 (1.3-6.7); Neutrophils Percent Auto 81.8 % (45.5-73.1); Platelet Count Result 184 k/mm3 (150-375); Red Blood Count 4.24 M/mm3 (4.6-6.20); Red Cell Distribution Width 14.1 % (11.5-14.5); White Blood Count 11.6 K/mm3 (4.5-10.0)
--- NOTE | 2021-05-15 16:55 | PC.NURSE ---
Ortiz unclamped at this time due to urine leaking around catheter site.
[2021-05-15 17:01] LABS: Anion Gap 9 mmol/L (8-16); Blood Urea Nitrogen 23 mg/dL (9-20); Calcium 9.7 mg/dL (8.4-10.2); Carbon Dioxide 24 mmol/L (22-30); Chloride 105 mmol/L (98-107); Estimated CRCL calculation 47 ml/min; Estimated Glomerular Filt Rate 44; Glucose 107 mg/dL (65-110); Potassium 4.7 mmol/L (3.4-5.0); Sodium 138 mmol/L (137-145)
[2021-05-15] MEDS: SODIUM CHLORIDE 0.9% IV 1,000 ML 999 ML IV CONT (17:42)
[2021-05-15] MEDS: CIPROFLOXACIN 400 MG/D5W 200ML 200 ML 200 MG IVPB (18:41)
--- NOTE | 2021-05-15 20:50 | PC.NURSE ---
Pt's urbano switched to leg bag prior to discharge, reviewed teaching/home care with pt who verbalized understanding. Pt has urology appointment tomorrow am.
[2021-05-15 20:55] VITALS: BP 130/72; PULSE 79; RESP 19; O2SAT 98
--- NOTE | 2021-05-24 08:09 | PC.NURSE ---
Ciprofloxacin stopped at 19:41pm prior to discharge on 05/15/2021.
== END 2021-05-15 20:55 | disposition home or self-care (01) ==
PROVIDERS: Physician Assistant; Emergency Provider General Practice; PCP Physician Assistant
DX: N39.0 Urinary tract infection, site not specified (principal); R33.9 Retention of urine, unspecified; Z98.890 Other specified postprocedural states; Z96.0 Presence of urogenital implants; I25.10 Atherosclerotic heart disease of native coronary artery without angina pectoris; I25.2 Old myocardial infarction; E78.5 Hyperlipidemia, unspecified; I10 Essential (primary) hypertension; G47.33 Obstructive sleep apnea (adult) (pediatric); Z95.5 Presence of coronary angioplasty implant and graft; Z95.1 Presence of aortocoronary bypass graft; F17.210 Nicotine dependence, cigarettes, uncomplicated
CPT/HCPCS: 36415; 74176; 80048; 81001; 85025; 96361; 96365; 96375; 99284; A9270; J0744; J2270; J2405; J7030

== ENCOUNTER 2024-05-16 11:43 | Outpatient (CLI) | payer MEDICARE, OTHER, SELFPAY ==
--- NOTE | ~2024-05-16 | XR_ITS ---
EXAMINATION: XR chest 2V DATE: 05/16/2024 12:07 INDICATION: Pneumonia due to infectious organisms TECHNIQUE: PA and lateral views of the chest were obtained. COMPARISON: Chest radiograph dated 07/27/2016 FINDINGS: Focal airspace opacity projecting along the right minor fissure on the frontal projection. No other a irspace opacities, pulmonary edema, pleural effusion or pneumothorax. Mild cardiomegaly. Median montejo otomy wires and mediastinal surgical clips are seen, likely from prior coronary artery bypass graftin g. Calcified mediastinal lymph nodes consistent with old granulomatous disease. IMPRESSION: 1. Focal airspace opacity in the right lung caudal to the minor fissure which could represent atelect asis or pneumonia. 2. Cardiomegaly. Reviewed, dictated and finalized at location B. DENTIAL MENTAL HEALTH WORKER IMPRESSION: 1. Focal airspace opacity in the right lung caudal to the minor fissure which c ould represent atelectasis or pneumonia. 2. Cardiomegaly.
== END 2024-05-16 11:44 | disposition home or self-care (01) ==
PROVIDERS: PCP Physician Assistant; Visit Provider Physician Assistant
DX: J18.9 Pneumonia, unspecified organism (principal); I51.7 Cardiomegaly
CPT/HCPCS: 71046